=== PATIENT | female | born 1960 | race Caucasian/White ===

== ENCOUNTER 2018-05-23 22:34 | Emergency (ER) | payer OTHER ==
[~2018-05-23] VITALS: Ht 170.2 cm; Wt 99.8 kg
[2018-05-23 22:34] VITALS: BP 147/95
[~2018-05-23 22:34] MED LIST: CARBATROL100 MG PO
[2018-05-23] MEDS ORDERED: Albuterol ud Inhalation HHN ONE (22:45)
[2018-05-23] MEDS ORDERED: Ipratropium 0.02% Inh Soln 2.5ml UD HHN ONE (22:45)
[2018-05-23 23:30] VITALS: BP 147/95
[2018-05-23] MEDS ORDERED: AMOXICILLIN500 MG ORAL (23:32)
[2018-05-23] MEDS ORDERED: ALBUTEROL SULF8.5 GM INH (23:32)
[2018-05-23] MEDS ORDERED: PREDNISONE20 MG ORAL (23:32)
--- NOTE | 2018-05-24 04:31 | Emergency Room Report ---
History of Present Illness General Chief Complaint: Medical Clearance Source: Patient Present Illness HPI 57-year-old female presents ED for evaluation. Brought in by EMS for detention clearance. Patient is complaining of chest pain and chest tightness. States she's had these symptoms for months. Also notes wheezing and cough. States she smokes. Cough is dry. Denies fevers or chills. Denies drug use. No other aggravating relieving factors. Denies any other associated symptoms Allergies: Coded Allergies: No Known Allergies (Unverified , 05/23/18) Patient History Past Medical History: seizures Past Surgical History: none Pertinent Family History: none Social History: Denies: smoking, alcohol use, drug use Last Menstrual Period: DAVID Now: No Immunizations: UTD Reviewed Nursing Documentation: PMH: Agreed; PSxH: Agreed Nursing Documentation-PMH Past Medical History: No History, Except For Hx Seizures: Yes Review of Systems All Other Systems: negative except mentioned in HPI Physical Exam Vital Signs Date Time Temp Pulse Resp B/P (MAP) Pulse Ox O2 Delivery O2 Flow Rate FiO2 05/23/18 22:22 99.1 90 14 147/95 100 Room Air 05/23/18 22:52 21 Sp02 EP Interpretation: reviewed, normal General Appearance: no apparent distress, alert, GCS 15, non-toxic Head: normocephalic, atraumatic Eyes: bilateral eye normal inspection, bilateral eye PERRL ENT: hearing grossly normal, normal pharynx, no angioedema, normal voice Neck: full range of motion, supple/symm/no masses Respiratory: chest non-tender, lungs clear, decreased breath sounds, speaking full sentences Cardiovascular #1: regular rate, rhythm, no edema Cardiovascular #2: 2+ carotid (R), 2+ carotid (L), 2+ radial (R), 2+ radial (L) , 2+ dorsalis pedis (R), 2+ dorsalis pedis (L) Gastrointestinal: normal bowel sounds, non tender, soft, non-distended, no guarding, no rebound Rectal: deferred Genitourinary: normal inspection, no CVA tenderness Musculoskeletal: back normal, gait/station normal, normal range of motion, non- tender Neurologic: alert, oriented x3, responsive, motor strength/tone normal, sensory intact, speech normal Psychiatric: judgement/insight normal, memory normal, mood/affect normal, no suicidal/homicidal ideation Reflexes: 3+ bicep (R), 3+ bicep (L), 3+ tricep (R), 3+ tricep (L), 3+ knee (R) , 3+ knee (L) Skin: normal color, no rash, warm/dry, well hydrated Lymphatic: no adenopathy Medical Decision Making Diagnostic Impression: Primary Impression: COPD (chronic obstructive pulmonary disease) Qualified Codes: J44.9 - Chronic obstructive pulmonary disease, unspecified Additional Impression: Medical clearance for incarceration ER Course Hospital Course 57 yo F presents to ED c/o chest tightness, wheezing. in police custody Differential diagnoses include: URI, bronchitis, asthma/COPD, pneumonia Clinical course Patient placed on stretcher. After initial history and physical I ordered EKG, prednisone and nebulizer treatment. EKGnormal sinus rhythm no acute ischemic changes interpreted by me Reassessment patient feeling better. Improved breath sounds after breathing treatments. Vital stable. Blood pressure within normal limits. Reassurance given to patient. Safe for discharge to police custody. We'll provide prescriptions. Patient states she has a PMD Diagnosis - COPD, medical clearance for incarceration Stable and discharged to [facility] with prescriptions for Rx prednisone, amoxicillin , albuterol. Instructed to followup with PMD. Return to ED if symptoms recur or worsen EKG Diagnostic Results Rate: normal Rhythm: NSR ST Segments: no acute changes ASA given to the pt in ED: No Rhythm Strip Diag. Results EP Interpretation: yes Rhythm: NSR, no PVC's, no ectopy Last Vital Signs Date Time Temp Pulse Resp B/P (MAP) Pulse Ox O2 Delivery O2 Flow Rate FiO2 05/23/18 23:30 98.6 89 20 147/95 99 Room Air 21 Status: improved Disposition: HOME, SELF-CARE Condition: Stable Scripts Amoxicillin* (AMOXIL*) 500 Mg Capsule 500 MG ORAL THREE TIMES A DAY, #21 CAP Prov: Eugene Narayan MD 05/23/18 Prednisone* (PREDNISONE*) 20 Mg Tablet 40 MG ORAL DAILY, #10 TAB Prov: Eugene Narayan MD 05/23/18 Albuterol Sulfate* (ALBUTEROL SULFATE MDI*) 8.5 Gm Hfa.aer.ad 2 PUFF INH Q6H, #1 EA 0 Refills Prov: Eugene Narayan MD 05/23/18 Referrals: NOT CHOSEN IPA/,REFERRING (PCP) Departure Forms: Custodial Clearance Patient Instructions: Acute Bronchitis, [id number] Eugene Narayan MD May 24, 2018 04:31
== END 2018-05-23 23:30 | disposition home or self-care (01) ==
LOC: EDBD 22:34 → EMR 22:47
DX: R07.9 Chest pain, unspecified (principal); J44.9 Chronic obstructive pulmonary disease, unspecified; F17.200 Nicotine dependence, unspecified, uncomplicated
CPT/HCPCS: 93005; 94640; 99284; J7512